=== PATIENT | male | born 1995 | race Caucasian/White ===

== ENCOUNTER 2021-01-05 17:00 | Emergency (ER) | payer BC ==
[~2021-01-05] VITALS: Ht 182.9 cm; Wt 74.8 kg
--- NOTE | 2021-01-05 17:23 | NUR ---
TO ER BED 17, AT BEDSIDE, SALINE LOCK ESTABLISHED.
[2021-01-05] MEDS ORDERED: ONDANSETRON HCL/PF 4 MG/2 ML VIAL ONE (17:29)
[2021-01-05] MEDS ORDERED: KETOROLAC TROMETHAMINE 15 MG/ML VIAL ONE (17:29)
[2021-01-05] MEDS ORDERED: ONDANSETRON HCL/PF 4 MG/2 ML VIAL IVP ONE (17:30)
[2021-01-05] MEDS ORDERED: IV NS 0.9% 1,000 ML BAG IV ONE (17:30)
[2021-01-05] MEDS ORDERED: KETOROLAC TROMETHAMINE INJ 30 MG/ML VIAL IV ONE (17:30)
[2021-01-05 17:59] LABS: BASOPHILS # (AUTO) 0.1 K/uL (0.0-0.2); BASOPHILS % (AUTO) 0.6 % (0.0-2.0); EOSINOPHILS % (AUTO) 2.2 % (0.0-6.0); HEMATOCRIT 43 % (39-51); HEMOGLOBIN 14.8 g/dL (13.5-17.5); LYMPHOCYTES # (AUTO) 1.3 K/uL (0.8-4.8); LYMPHOCYTES % (AUTO) 16.3 % (20.0-44.0); MEAN CORPUSCULAR HGB CONC 34 g/dl (31.0-36.0); MEAN CORPUSCULAR VOLUME 91 fL (80-96); MONOCYTES # (AUTO) 0.6 K/uL (0.1-1.30); MONOCYTES % (AUTO) 7.8 % (2.0-12.0); NEUTROPHILS # (AUTO) 5.9 K/uL (1.8-8.9); NEUTROPHILS % (AUTO) 73.1 % (43.0-81.0); PLATELET COUNT (AUTO) 194 K/uL (150-450); WHITE BLOOD COUNT (AUTO) 8.1 K/uL (4.3-11.0)
[2021-01-05 18:07] LABS: CREATININE 1.1 mg/dL (0.6-1.3); POTASSIUM 2.9 mmol/L (3.5-5.1)
[2021-01-05 18:10] LABS: CALCIUM, SERUM 8.5 mg/dL (8.5-10.1)
[2021-01-05 18:27] LABS: BILIRUBIN,DIRECT 0.1 mg/dL (0.0-0.2); BILIRUBIN,TOTAL 0.7 mg/dL (0.2-1.0); TOTAL PROTEIN, SERUM 6.9 g/dL (6.4-8.2)
--- NOTE | 2021-01-05 19:11 | NUR ---
REPORT GIVEN TO ALFRED RN FOR CHERI
--- NOTE | 2021-01-05 19:56 | NUR ---
verbal order 2mg of morphine
[2021-01-05] MEDS ORDERED: MORPHINE SULFATE INJ 2 MG/ML DISP.SYRIN ONE (19:57)
[2021-01-05] MEDS ORDERED: MORPHINE SULFATE INJ 2 MG/ML DISP.SYRIN IV ONE (20:30)
[2021-01-05] MEDS ORDERED: OXYC-128 PO (21:00)
[2021-01-05] MEDS ORDERED: NAPR-1192 PO (21:00)
[2021-01-05] MEDS ORDERED: TAMS-12 PO (21:00)
[2021-01-05] MEDS ORDERED: ONDA4TAB5 PO (21:00)
--- NOTE | 2021-01-05 21:08 | NUR ---
IV removed. Catheter intact and site benign. Pressure and 4x4 applied to site. No bleeding noted. Patient discharged to home in stable condition. Written and verbal after care instructions given. Patient verbalizes understanding of instruction. ambulatory with a steady gait noted. advice pt not to drive or operate any machinery due to pt was given narcotic medicine. pt verbalize understanding. pt s/o at bedside to take pt home.
[2021-01-05 21:09] VITALS: BP 132/64
== END 2021-01-05 21:09 | disposition home or self-care (01) ==
LOC: ER 17:06
DX: N20.0 Calculus of kidney (principal); E87.6 Hypokalemia; Z79.899 Other long term (current) drug therapy
CPT/HCPCS: 36415; 74176; 80048; 80076; 83605; 83690; 85025; 96361; 96374; 96375; 99284; J1885; J2270; J2405; J7030